=== PATIENT | male | born 1960 | race Caucasian/White ===

== ENCOUNTER 2017-04-25 07:21 | Emergency (ER) | payer BC, OTHER ==
[~2017-04-25] VITALS: Ht 188 cm; Wt 155.3 kg
[~2017-04-25 07:21] MED LIST: ANDR1GEL TD; ASPI1TAB69 PO; GLUC1CAP14 PO; LISI-515 PO; MULTTAB67 PO; NAPR220T95 PO; OMEGCAP PO; PROSTAB PO; SACC1CAP3 PO
[2017-04-25 07:26] VITALS: BP 167/98; PULSE 96; RESP 16; TEMP 98.2; O2SAT 95
[2017-04-25] MEDS ORDERED: LISI-515 PO (09:06)
[2017-04-25] MEDS ORDERED: AXIR30SO TOPICAL (09:06)
--- NOTE | 2017-04-25 09:39 | PD ---
HPI Chief Complaint: Back/ Neck Pain or Injury Time Seen by Provider: 09:16 Travel History International Travel<30 days: No Contact w/Intl Traveler<30days: No Traveled to known affect area: No History of Present Illness HPI Patient is a 56-year-old male presents emergency department for evaluation of right-sided low back pain. Patient states he was having sex with his 2 nights ago and felt a twinge at that time. He states pain is been gradually worsening since then. He states he has had some back pain in the past but this is somewhat worse. Describes the pain as a spasm in the right flank which radiates to midline. No radiculopathy symptoms, no saddle anesthesia, no loss of bowel or bladder, no bowel or bladder retention. No fevers no nausea vomiting. No dysuria. Symptoms for the past 2 days, gradually worsening, context and associated signs and symptoms as above PFSH Past Medical History Diabetes: No Diminished Hearing: No Hypertension: Yes Medical other: Yes (PANCREAS) Tetanus Vaccination: Unknown Past Surgical History Surgical History: No Previous Surgery Social History Alcohol Use: Yes (OCC) Tobacco Use: No Substance Use: No Allergies-Medications (Allergen,Severity, Reaction): Coded Allergies: No Known Allergies (Unverified Adverse Reaction, Unknown, 04/25/17) Reported Meds & Prescriptions Reported Meds & Active Scripts Active Tramadol (Tramadol HCl) 50 Mg Tab 50 Mg PO Q6H PRN Medrol Dosepak (Methylprednisolone) 4 Mg Dspk 4 Mg PO DIRECTED Per Pharmacist direction Flexeril (Cyclobenzaprine HCl) 10 Mg Tab 10 Mg PO TID Reported Lisinopril 20 Mg Tab 20 Mg PO DAILY Axiron Topical (Testosterone) 30 Mg/1.5 Ml Per Actuation Le 1 Applic TOPICAL DAILY Review of Systems Except as stated in HPI: all other systems reviewed are Neg Physical Exam Narrative GENERAL: Well-nourished, well-developed patient. Overweight very tall. SKIN: Focused skin assessment warm/dry. HEAD: Normocephalic. EYES: No scleral icterus. No injection or drainage. NECK: Supple, trachea midline. No JVD or lymphadenopathy. CARDIOVASCULAR: Regular rate and rhythm without murmurs, gallops, or rubs. RESPIRATORY: Breath sounds equal bilaterally. No accessory muscle use. GASTROINTESTINAL: Abdomen soft, non-tender, nondistended. MUSCULOSKELETAL: No cyanosis, or edema. No midline CT or L-spine tenderness, no palpable spasm. No CVA tenderness. BACK: Nontender without obvious deformity. No CVA tenderness. Data Data Last Documented VS Vital Signs Date Time Temp Pulse Resp B/P (MAP) Pulse Ox O2 Delivery O2 Flow Rate FiO2 04/25/17 10:37 92 16 159/95 (116) 95 04/25/17 07:[address] Lumb Spine W/O Contrast (04/25/17 ) Ed Discharge Order (04/25/17 10:28) MDM Medical Decision Making Medical Screen Exam Complete: Yes Emergency Medical Condition: Yes Differential Diagnosis Strain, sprain, occult fracture. Cauda equina syndrome is been excluded clinically. Narrative Course Last 24 [address] Impressions [address] 04/25/17 0000 Signed Impressions: Service Date/Time: Tuesday, April 25, 2017 09:51 - CONCLUSION: 1. Mild diffuse primary bony degenerative changes of the lumbar spine. 2. Bilateral facet arthritis at L4-5 and L5-S1 Romero Levin MD Patient room to the emergency department, did not declined pain medicine in the emergency department as he is going to drive home, he is ambulatory in the emergency department albeit antalgic. CAT scan was reassuring. Discussed with him symptomatic management return to ED criteria and follow-up with his primary care physician and consideration of outpatient MRI if no better in a few weeks. He verbalized understanding and agreement. He is stable for discharge Diagnosis Primary Impression: Low back pain Departure Forms: Tests/Procedures, Work Release Enter return to work date: May 01, 2017 Med/Other Pt SpecificInfo: Prescription(s) given Scripts Tramadol (Tramadol) 50 Mg Tab 50 MG PO Q6H Y for PAIN, #15 TAB 0 Refills Prov: González Tijerina MD 04/25/17 Methylprednisolone Dosepak (Medrol Dosepak) 4 Mg Dspk 4 MG PO DIRECTED, #1 DSPK 0 Refills Per Pharmacist direction Prov: González Tijerina MD 04/25/17 Cyclobenzaprine (Flexeril) 10 Mg Tab 10 MG PO TID for Muscle Spasm, #20 TAB 0 Refills Prov: González Tijerina MD 04/25/17 Disposition: 01 DISCHARGE HOME Condition: Stable González Tijerina MD Apr 25, 2017 09:39
--- NOTE | 2017-04-25 10:12 | RADRPT ---
EXAM DATE/TIME: 04/25/2017 09:51 [facility] COMPARISON: No previous studies available for comparison. INDICATIONS : Lower back pain. RADIATION DOSE: 47.36 CTDIvol (mGy) ; Patient body habitus MEDICAL HISTORY : Hypertension. SURGICAL HISTORY : None. ENCOUNTER: Initial ACUITY: 4 - 6 days PAIN SCALE: 8/10 LOCATION: spine TECHNIQUE: Volumetric scanning of the lumbar spine was performed. Multiplanar reconstructions in the sagittal, coronal and oblique axial planes were performed. Using automated exposure control and adjustment of the mA and/or kV according to patient size, radiation dose was kept as low as reasonably achievable t o obtain optimal diagnostic quality images. DICOM format image data is available electronically for review and comparison. FINDINGS: VERTEBRAE: Normal vertebral body height. Mild primary degenerative changes are seen involving the lumbar spine. No compression fracture injuries are demonstrated. ALIGNMENT: No evidence of subluxation. T12-L1: The thecal sac has a normal diameter. No evidence of disc bulge or protrusion. The neural foramina are patent bilaterally. L1-L2: The thecal sac has a normal diameter. No evidence of disc bulge or protrusion. The neural foramina are patent bilaterally. L2-L3: The thecal sac has a normal diameter. No evidence of disc bulge or protrusion. The neural foramina are patent bilaterally. L3-L4: The thecal sac has a normal diameter. No evidence of disc bulge or protrusion. The neural foramina are patent bilaterally. L4-L5: The thecal sac has a normal diameter. No evidence of disc bulge or protrusion. The neural foramina are patent bilaterally. Mild bilateral facet arthritis. L5-S1: The thecal sac has a normal diameter. No evidence of disc bulge or protrusion. The neural foramina are patent bilaterally. Bilateral facet arthritis, left greater than right. CONCLUSION: 1. Mild diffuse primary bony degenerative changes of the lumbar spine. 2. Bilateral facet arthritis at L4-5 and L5-S1 Romero Levin MD on April 25, 2017 at 10:07 Board Certified Radiologist. This report was verified electronically.
[2017-04-25] MEDS ORDERED: CYCL10TA PO (10:27)
[2017-04-25] MEDS ORDERED: MEDR4PAK PO (10:27)
[2017-04-25] MEDS ORDERED: TRAM50TA PO (10:33)
[2017-04-25 10:37] VITALS: BP 159/95
== END 2017-04-25 10:43 | disposition home or self-care (01) ==
LOC: PHED 07:21
DX: M54.5 Low back pain (principal)
CPT/HCPCS: 72131; 99283

== ENCOUNTER 2017-07-03 14:05 | Emergency (ER) | payer BC ==
[~2017-07-03] VITALS: Ht 188 cm; Wt 147.3 kg
[~2017-07-03 14:05] MED LIST changes: -ANDR1GEL TD; -ASPI1TAB69 PO; +AXIR30SO TOPICAL; +CYCL10TA PO; -GLUC1CAP14 PO; +MEDR4PAK PO; -MULTTAB67 PO; -NAPR220T95 PO; -OMEGCAP PO; -PROSTAB PO; -SACC1CAP3 PO; +TRAM50TA PO
[2017-07-03 14:11] VITALS: BP_SYST 141; BP_DIAS 68; BP_DIAS 8; PULSE 90; RESP 16; TEMP 98.5; O2SAT 95
[2017-07-03] MEDS ORDERED: SODIUM CHLOR 0.9% 1000 ML INJ 1,000 ML IV SCH (15:15)
[2017-07-03] MEDS ORDERED: PANTOPRAZOLE SODIUM 40 MG VIAL IV PUSH ONE (15:15)
--- NOTE | 2017-07-03 15:24 | PD ---
HPI Chief Complaint: Abdominal Pain Time Seen by Provider: 15:00 Travel History International Travel<30 days: No Contact w/Intl Traveler<30days: No Traveled to known affect area: No History of Present Illness HPI 57-year-old male complains of abdominal pain. Patient states that she is not having right flank pain and right upper quadrant abdominal pain about 2 weeks ago. Patient states that the pain lasted for 3 days on the right upper quadrant and right flank area and moved down to the mid abdomen. Patient states that the pain moved back up to the right upper quadrant and right flank area for the past few days. Patient complains of abdominal bloating also. Patient states the pain is worse with eating. Patient states that the pain a combination cramping pain and sharp pain. Patient denies any fever chills. Patient denies any dysuria frequency. Patient denies any back pain. Patient has history of pancreatitis about 5 years ago. Patient states that he was admitted to [facility] in [facility] at that time. Patient states that the pancreatitis was secondary to a blocked blood vessel. Patient states that he drinks alcohol occasionally. Patient was seen by local physician and had CT scan of patient done abdomen pelvis and ultrasound gallbladder done 3 days ago at [facility]. CT scan of the abdomen pelvis shows pancreatitis. 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 Ultrasound shows hepatic steatosis. Small gallbladder stone. No sonographic evidence of acute cholecystitis. Patient was advised by the personal physician to go to ER for evaluation. On a scale of 1-10 the pain is a 4. PFSH Past Medical History Cardiovascular Problems: Yes (htn on meds) Diabetes: No Diminished Hearing: No Hypertension: Yes Triglycerides - High: Yes Tetanus Vaccination: < 5 Years Influenza Vaccination: Yes Social History Alcohol Use: Yes ([facility]) Tobacco Use: No Substance Use: No Allergies-Medications (Allergen,Severity, Reaction): Coded Allergies: No Known Allergies (Unverified Adverse Reaction, Unknown, 07/03/17) Reported Meds & Prescriptions Reported Meds & Active Scripts Active Reported Lisinopril 20 Mg Tab 20 Mg PO DAILY Axiron Topical (Testosterone) 30 Mg/1.5 Ml Per Actuation Le 1 Applic TOPICAL DAILY Review of Systems General / Constitutional: No: Fever Eyes: No: Visual changes HENT: No: Headaches Cardiovascular: No: Chest Pain or Discomfort Respiratory: No: Shortness of Breath Gastrointestinal: Positive: Abdominal Pain Genitourinary: No: Dysuria Musculoskeletal: No: Pain Skin: No Rash Neurologic: No: Weakness Psychiatric: No: Depression Endocrine: No: Polydipsia Hematologic/Lymphatic: No: Easy Bruising Physical Exam Narrative GENERAL: Well-nourished, well-developed patient. SKIN: Focused skin assessment warm/dry. HEAD: Normocephalic. EYES: No scleral icterus. No injection or drainage. NECK: Supple, trachea midline. No JVD or lymphadenopathy. CARDIOVASCULAR: Regular rate and rhythm without murmurs, gallops, or rubs. RESPIRATORY: Breath sounds equal bilaterally. No accessory muscle use. GASTROINTESTINAL: Abdomen soft, nondistended. Patient has mild tenderness on palpation of epigastric and right upper quadrant of the abdomen. No rebound tenderness. No mass. MUSCULOSKELETAL: No cyanosis, or edema. BACK: Nontender without obvious deformity. No CVA tenderness. Neurologic exam normal. Data Data Last Documented VS Vital Signs Date Time Temp Pulse Resp B/P (MAP) Pulse Ox O2 Delivery O2 Flow Rate FiO2 07/03/17 15:40 96 Room Air 07/03/17 14:11 98.5 90 16 141/68 (92) Orders Orders Complete Blood Count With Diff (07/03/17 15:14) Comprehensive Metabolic Panel (07/03/17 15:14) Prothrombin Time / Inr (Pt) (07/03/17 15:14) Act Partial Throm Time (Ptt) (07/03/17 15:14) Lipase (07/03/17 15:14) Urinalysis - C+S If Indicated (07/03/17 15:14) Iv Access Insert/Monitor (07/03/17 15:14) Ecg Monitoring (07/03/17 15:14) Oximetry (07/03/17 15:14) Sodium Chlor 0.9% 1000 Ml Inj (Ns 1000 M (07/03/17 15:15) Pantoprazole Inj (Protonix Inj) (07/03/17 15:15) Labs Laboratory Tests Test 07/03/17 15:25 07/03/17 15:30 White Blood Count 8.4 TH/MM3 Red Blood Count 5.85 MIL/MM3 Hemoglobin 17.4 GM/DL Hematocrit 50.2 % Mean Corpuscular Volume 85.7 FL Mean Corpuscular Hemoglobin 29.7 PG Mean Corpuscular Hemoglobin Concent 34.6 % Red Cell Distribution Width 14.2 % Platelet Count 261 TH/MM3 Mean Platelet Volume 7.8 FL Neutrophils (%) (Auto) 59.9 % Lymphocytes (%) (Auto) 22.0 % Monocytes (%) (Auto) 13.5 % Eosinophils (%) (Auto) 1.7 % Basophils (%) (Auto) 2.9 % Neutrophils # (Auto) 5.1 TH/MM3 Lymphocytes # (Auto) 1.9 TH/MM3 Monocytes # (Auto) 1.1 TH/MM3 Eosinophils # (Auto) 0.1 TH/MM3 Basophils # (Auto) 0.2 TH/MM3 CBC Comment DIFF FINAL Differential Comment Prothrombin Time 11.4 SEC Prothromb Time International Ratio 1.1 RATIO Activated Partial Thromboplast Time 27.3 SEC Blood Urea Nitrogen 12 MG/DL Creatinine 1.20 MG/DL Random Glucose 77 MG/DL Total Protein 8.3 GM/DL Albumin 3.4 GM/DL Calcium Level 9.2 MG/DL Alkaline Phosphatase 50 U/L Aspartate Amino Transf (AST/SGOT) 25 U/L Alanine Aminotransferase (ALT/SGPT) 37 U/L Total Bilirubin 1.2 MG/DL Sodium Level 136 MEQ/L Potassium Level 4.1 MEQ/L Chloride Level 101 MEQ/L Carbon Dioxide Level 29.2 MEQ/L Anion Gap 6 MEQ/L Estimat Glomerular Filtration Rate 63 ML/MIN Lipase 210 U/L Urine Collection Type CLEAN CATCH Urine Color YELLOW Urine Turbidity CLEAR Urine pH 5.5 Urine Specific [place] 1.025 Urine Protein TRACE mg/dL Urine Glucose (UA) NEG mg/dL Urine Ketones TRACE mg/dL Urine Occult Blood NEG Urine Nitrite NEG Urine Bilirubin NEG Urine Urobilinogen 0.2 MG/DL Urine Leukocyte Esterase NEG Urine RBC 0-3 /hpf Urine WBC 0-2 /hpf Urine Squamous Epithelial Cells 0-5 /hpf Microscopic Urinalysis Comment CULT NOT INDICATED Urine Collection Time 15:30 [facility] Medical Decision Making Medical Screen Exam Complete: Yes Emergency Medical Condition: Yes Interpretation(s) 1606 p.m. CBC within normal limits. CMP within normal limits. Lipase 210. UA is negative. Differential Diagnosis Differential diagnosis including pancreatitis, electrolyte imbalance, dehydration. Narrative Course 57-year-old male with epigastric and right upper quadrant abdominal pain. CT scan of the abdomen pelvis 3 days ago show pancreatitis. Normal saline solution 1 25 cc an hour. Protonix 40 mg IV. Diagnosis Primary Impression: Chronic pancreatitis Qualified Codes: K86.1 - Other chronic pancreatitis Admitting Information Admitting Physician Requests: Observation Patient Instructions: General Instructions Additional Instructions: Take medications as directed. Follow-up with personal physician and refresh technician. Return if worse. Med/Other Pt SpecificInfo: Prescription(s) given Scripts Dicyclomine (Bentyl) 10 Mg Cap 10 MG PO TID Y for Bowel Management, #30 CAP 0 Refills Prov: Farzad Zimmerman MD 07/03/17 Pantoprazole (Protonix) 40 Mg Tab 40 MG PO DAILY for Reflux, #30 TAB 0 Refills Prov: Farzad Zimmerman MD 07/03/17 Tramadol (Ultram) 50 Mg Tab 50 MG PO Q6H Y for PAIN, #12 TAB 0 Refills Prov: Farzad Zimmerman MD 07/03/17 Disposition: 01 DISCHARGE HOME Condition: Stable Farzad Zimmerman MD July 03, 2017 15:24
[2017-07-03 15:31] LABS: AUTOMATED NEUTROPHIL # 5.1 TH/MM3 (1.8-7.7); BASOPHIL # 0.2 TH/MM3 (0-0.2); BASOPHIL % 2.9 % (0.0-2.0); EOSINOPHIL # 0.1 TH/MM3 (0-0.4); EOSINOPHIL % 1.7 % (0.0-4.0); HEMATOCRIT 50.2 % (39.0-51.0); HEMOGLOBIN 17.4 GM/DL (13.0-17.0); LYMPHOCYTE # 1.9 TH/MM3 (1.0-4.8); MEAN CELL VOLUME 85.7 FL (80.0-100.0); MEAN CORPUSCULAR HEMOGLOBIN 29.7 PG (27.0-34.0); MEAN CORPUSCULAR HGB CONC 34.6 % (32.0-36.0); MEAN PLATELET VOLUME 7.8 FL (7.0-11.0); MONO % 13.5 % (0.0-8.0); MONOCYTE # 1.1 TH/MM3 (0-0.9); NEUT % 59.9 % (16.0-70.0); PLATELET COUNT 261 TH/MM3 (150-450); RED BLOOD COUNT 5.85 MIL/MM3 (4.50-5.90); RED CELL DISTRIBUTION WIDTH 14.2 % (11.6-17.2); WHITE BLOOD COUNT 8.4 TH/MM3 (4.0-11.0)
[2017-07-03 15:36] LABS: BILIRUBIN, URINE NEG (NEG); BLOOD, URINE NEG (NEG); GLUCOSE,URINE NEG (NEG); KETONE, URINE TRACE mg/dL (NEG); NITRITE,URINE NEG (NEG); PH, URINE 5.5 (5.0-8.5); URINE COLOR YELLOW (YELLW/STRAW); URINE LEUKOCYTE ESTERASE NEG (NEG)
[2017-07-03 15:39] LABS: CHLORIDE 101 MEQ/L (98-107); SODIUM (NA) 136 MEQ/L (136-145)
[2017-07-03 15:40] VITALS: O2SAT 96
[2017-07-03 15:42] LABS: ALBUMIN 3.4 GM/DL (3.4-5.0); CALCIUM 9.2 MG/DL (8.5-10.1)
[2017-07-03 15:43] LABS: BICARBONATE 29.2 MEQ/L (21.0-32.0); BLOOD UREA NITROGEN 12 MG/DL (7-18); GLUCOSE,RANDOM 77 MG/DL (74-106)
[2017-07-03 15:44] LABS: INTERNATIONAL NORMALIZED RATIO 1.1 RATIO; PROTHROMBIN TIME - PATIENT 11.4 SEC (9.8-11.6)
[2017-07-03 15:45] LABS: ALT (GPT) 37 U/L (12-78); AST (GOT) 25 U/L (15-37); GLOMERULAR FILTRATION RATE 63 ML/MIN (>89)
[2017-07-03 15:47] LABS: TOTAL BILIRUBIN ADULT 1.2 MG/DL (0.2-1.0); TOTAL PROTEIN 8.3 GM/DL (6.4-8.2)
[2017-07-03 15:48] LABS: ALKALINE PHOSPHATASE 50 U/L (45-117)
[2017-07-03 16:02] LABS: RBC, URINE 0-3 /hpf (0-3); SQUAMOUS EPITHELIAL CELL URINE 0-5 /hpf (0-5); WBC, URINE 0-2 /hpf (0-5)
[2017-07-03] MEDS ORDERED: TRAM50 PO (16:26)
[2017-07-03] MEDS ORDERED: DICY10 PO (16:26)
[2017-07-03] MEDS ORDERED: PROT40TA PO (16:26)
[2017-07-03 16:36] VITALS: BP 131/81
== END 2017-07-03 16:40 | disposition home or self-care (01) ==
LOC: PHED 14:05
DX: K86.1 Other chronic pancreatitis (principal); I10 Essential (primary) hypertension; E78.1 Pure hyperglyceridemia; Z79.899 Other long term (current) drug therapy
CPT/HCPCS: 80053; 81001; 83690; 85025; 85610; 85730; 96374; 99284; C9113; J7030